=== PATIENT | male | born 1955 | race Caucasian/White ===

== ENCOUNTER 2018-11-27 05:59 | Day surgery (SDC) | payer BC ==
[2018-11-27] MEDS ORDERED: Dextrose 5%-Lactated Ringers 1,000 ML IV SCH (06:30)
[2018-11-27] MEDS ORDERED: fentaNYL 100 MCG/2 ML SDV ONE (07:26)
[2018-11-27] MEDS ORDERED: Midazolam 1 MG/ML 2 ML SDV ONE (07:26)
[2018-11-27] MEDS ORDERED: Propofol 200 MG/20 ML SDV ONE (07:26)
--- NOTE | 2018-11-29 08:52 | OR ---
DATE OF PROCEDURE: 11/27/2018 PREOPERATIVE DIAGNOSIS: Indication for screening colonoscopy with previous personal history of colon polyps. POSTOPERATIVE DIAGNOSES: 1. Minimal left colonic diverticulosis. 2. No recurrent polyp disease identified. OPERATIVE PROCEDURE: Flexible colonoscopy. ANESTHESIA: IV sedation. INDICATION FOR PROCEDURE: This is a 63-year-old male presenting for followup colonoscopy. He does have history of previous colon polyps being removed, and he is to undergo colonoscopy with polypectomy and/or biopsies as indicated. Potential risks including bleeding and perforation were discussed, and the patient wishes to proceed. DETAILS OF PROCEDURE: The patient was taken to the operating room and placed in a left lateral decubitus position. IV sedation was administered, after which the initial digital rectal exam was performed and was unremarkable. The colonoscope was then passed into the rectum with retroflexion revealing uncomplicated hemorrhoidal columns. The scope was then eventually passed to the cecum. The prep was quite good with there only being a small amount of liquid stool present. To that level, the patient had scattered few uncomplicated diverticula in left colon, but otherwise there was no evidence of polyps or other signs of neoplasia, and no areas of colitis. The scope was then withdrawn and the above findings reconfirmed and the procedure was concluded. The patient was taken to the recovery room in satisfactory condition. Recommendation would be to repeat the colonoscopy in 5 years. Patrick Hairston MD /[id number]
== END 2018-11-27 09:05 | disposition home or self-care (01) ==
LOC: JP.SDS 05:59
PROVIDERS: ATTEND Surgery
DX: Z12.11 Encounter for screening for malignant neoplasm of colon (principal); K64.9 Unspecified hemorrhoids; K57.30 Diverticulosis of large intestine without perforation or abscess without bleeding; Z86.010 Personal history of colon polyps
CPT/HCPCS: J2250; J2704; J3010; J7042